=== PATIENT | female | born 1980 | race Caucasian/White ===

== ENCOUNTER 2019-06-07 16:13 | Emergency (ER) | payer BC, SELFPAY ==
--- NOTE | 2019-06-07 16:15 | DI.RAD_ITS ---
EXAM: XR SHOULDER LT COMPLETE 2+V CLINICAL HISTORY: fall injury. TECHNIQUE: 2D digital imaging was performed. COMPARISON: No exams were available for comparison FINDINGS: BONES: No acute fracture is present. No bony destructive lesion is seen. JOINTS: No dislocation present. SOFT TISSUE: Normal. IMPRESSION: No acute fracture or subluxation of the left shoulder. DATA REPOSITORY: RADIATION DOSE DELIVERED:
[2019-06-07 16:17] VITALS: BP 117/74; PULSE 80; RESP 18; TEMP 36.1; O2SAT 100
--- NOTE | 2019-06-07 16:39 | W.ED.GENAD ---
Discharge Plan Disposition Patient Disposition: HOME Condition: Stable Discharge Details Chief Complaint: Orthopedic Clinical Impression: Acromioclavicular (AC) joint injury Primary Care Provider: Kyleigh,Local ED Provider: Malachi Torrez Home Meds and New Rx's Prescriptions: No Action No Known Home Meds RF: 0 Discharge Instructions Instructions: Acromioclavicular Separation (ED), Shoulder Sprain (ED) Additional Instructions: [id number] Tylenol and/or Motrin as directed for discomfort. Cool and/or warm compresses every 2 hours for 20 minutes. Wear sling as needed, advance activity as tolerated. Be sure to do passive range of motion at least 4 times daily to avoid a frozen shoulder. Please watch for new or worsening symptoms and return to the ER for any concerns. We will provide you with an x-ray of your shoulder you may bring it to your doctor when you return home. Discharge Data Discharge Date/Time-TO BE ENTERED AT DEPARTURE: 06/07/19 17:13 Medical Decision Making Patient presents with left shoulder pain that began approximately 45 minutes ago after falling directly on her left shoulder while skiing. Pain is 6 of 10. She appears well, no acute distress. Neuro, vascular, tendon intact. No obvious deformity. Point tenderness over the AC joint, likely AC joint injury, will obtain x-ray to rule any bony involvement. X-ray benign. Discussed findings patient and family. Discussed conservative therapy with sling, passive range of motion to avoid frozen shoulder, [id number] Tylenol and/or Motrin, cool and/or warm compresses, and follow-up with her primary care provider when she returns home near [place]. We did discuss that obviously she did strike her head and if she develops new or worsening symptoms she should certainly seek medical attention longer travels or return to this ER. First dose of Tylenol given here Imaging Data Radiologic Study: Attestation: I personally reviewed and interpreted this imaging study as follows: Imaging: X-Ray My impression: Left shoulder x-ray read by me as unremarkable. Later confirmed by virtual radiology HPI General Mode of arrival: ambulatory. Date/Time Provider Initiated Documentation: 06/07/19 16:19. Limitations to Documentation: no limitations. Information obtained by: patient and family. HPI Narrative: 38-year-old female, right-hand dominant, fell at low speed directly onto her left shoulder and then subsequently struck her head on the ground. She was wearing a helmet. She denies any LOC, headache, visual changes, neck pain, numbness, tingling, weakness. She reports the pain in her shoulder is a 6 out of 10, worse with movement. Denies any other injury. Denies history of injury to the shoulder. Injury occurred approximately 45 minutes - 1 hour ago Related Data Home Medications Medication Instructions Recorded Confirmed Unknown [No Known Home Meds] 06/07/19 06/07/19 Allergies Allergy/AdvReac Type Severity Reaction Status Date / Time Sulfa (Sulfonamide AdvReac Nausea Unverified 06/07/19 16:16 Antibiotics) General Stated Complaint: Orthopedic DANNY: 3 Review of Systems Constitutional Constitutional: Denies headache(s) Eyes Eyes: Denies change in vision ENT Ears, Nose, Mouth, and Throat: Denies dizziness, Denies headache(s) and Denies neck pain Cardiovascular Cardiovascular: Denies chest pain and Denies dyspnea Respiratory Respiratory: Denies dyspnea Gastrointestinal Gastrointestinal: Denies nausea and Denies vomiting Musculoskeletal Musculoskeletal: Denies neck pain, Denies numbness and Denies tingling Neurologic Neurologic: Denies dizziness, Denies headache(s), Denies numbness and Denies tingling [facility] Social History Smoking/Tobacco Use Status: Never Alcohol Intake: current Alcohol Intake frequency: a few times a week Drug use: Occasionally Substance use type: marijuana Do you feel safe at home: Yes Do you feel safe in your relationship?: Yes Exam Const General: cooperative, healthy appearing, comfortable and no acute distress Orientation: alert and awake [facility] Head: normal to inspection, normocephalic and atraumatic Mouth: moist mucous membranes Eyes General: appearance normal, both eyes and all related structures Conjunctivae: conjunctivae normal Neck Neck: normal visual inspection, full ROM, trachea midline, supple and nontender Chest Chest: normal inspection of the chest and tenderness (Mild discomfort over the left AC joint) Resp Effort & Inspection: normal respiratory effort and able to speak in complete sentences Auscultation: clear to auscultation bilaterally Cardio Rate: regular rate Rhythm: regular rhythm Back/Spine/Pelvis Back: No back tenderness Skin General skin exam: no rashes or lesions noted Neuro General: alert, awake, oriented x3, moves all extremities and no focal motor deficits Motor: muscle tone normal throughout and strength 5/5 throughout Sensory Exam: no sensory deficits noted Extrem Left upper extremity: normal to inspection and shoulder/upper arm Details: inspection abnormal, tenderness Location: of the A-C joint (Point tenderness without deformity.) and normal ROM; no swelling Psych Appearance: grossly normal Mental Status: mental status grossly normal Course Vital Signs Vital signs: Vital Signs Temperature 36.1 C L 06/07/19 16:17 Pulse 80 06/07/19 16:17 Respiratory Rate 18 06/07/19 16:17 Blood Pressure 117/74 06/07/19 16:17 Pulse Oximetry 100 06/07/19 16:17 Temperature 36.1 C L 06/07/19 16:17 Temperature Source Temporal Artery Scan 06/07/19 16:17 Pulse 80 06/07/19 16:17 Respiratory Rate 18 06/07/19 16:17 Respiratory Effort Non-Labored 06/07/19 16:20 Blood Pressure 117/74 06/07/19 16:17 Blood Pressure Position Sitting 06/07/19 16:17 Pulse Oximetry 100 06/07/19 16:17 Oxygen Delivery Method Room Air 06/07/19 16:17 Oxygen Flow Rate 0 06/07/19 16:17 Pain Level 6 06/07/19 16:17
--- NOTE | 2019-06-07 17:10 | DI.VRAD_ITS ---
PROCEDURE INFORMATION: Exam: XR Left Shoulder Exam date and time: 06/07/2019 4:41 PM Age: 38 years old Clinical indication: Other: Fall injury TECHNIQUE: Imaging protocol: XR Left shoulder. Views: 2 or more views. COMPARISON: No relevant prior studies available. FINDINGS: Bones/joints: There is no evidence of acute fracture.There is no evidence of malalignment or dislocation. Soft tissues: Normal. IMPRESSION: There is no evidence of acute fracture.There is no evidence of malalignment or dislocation. Dictated and Authenticated by: Kenny Guadalupe MD. Ordering:ROSALIE Ly MD
[2019-06-07] MEDS: Acetaminophen 500 MG TAB 1000 MG PO (17:15)
== END 2019-06-07 17:13 | disposition home or self-care (01) ==
LOC: ER 17:32
PROVIDERS: Emergency Provider Physician Assistant
DX: S49.82XA Other specified injuries of left shoulder and upper arm, initial encounter (principal); V00.321A Fall from snow-skis, initial encounter; Y93.23 Activity, snow (alpine) (downhill) skiing, snowboarding, sledding, tobogganing and snow tubing
CPT/HCPCS: 99283; 73030; L3650